=== PATIENT | female | born 2000 | race Asian ===

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

== ENCOUNTER 2021-07-15 13:53 | Outpatient (CLI) | payer BC, OTHER | END 2021-07-15 19:06 | disposition home or self-care (01) | LOC: RAD 13:53 | PROVIDERS: ATTEND Nurse Practitioner Family | DX: R06.02 Shortness of breath (principal) ==

== ENCOUNTER 2021-11-02 14:39 | Emergency (ER) | payer BC, OTHER ==
[~2021-11-02] VITALS: Ht 172.7 cm; Wt 104.8 kg
[2021-11-02 16:14] VITALS: BP 167/95; TEMP 98.5
== END 2021-11-02 16:14 | disposition home or self-care (01) ==
LOC: ED 14:39
DX: S00.11XA Contusion of right eyelid and periocular area, initial encounter (principal); V47.6XXA Car passenger injured in collision with fixed or stationary object in traffic accident, initial encounter; Y92.89 Other specified places as the place of occurrence of the external cause
CPT/HCPCS: 99283

== ENCOUNTER 2022-10-06 12:38 | Emergency (ER) | payer OTHER ==
[~2022-10-06] VITALS: Ht 172.7 cm; Wt 95.3 kg
[2022-10-06 12:52] VITALS: BP 156/84; TEMP 99.6
[2022-10-06 13:20] LABS: PLATELET COUNT 241 K/uL (152-353)
== END 2022-10-06 13:44 | disposition home or self-care (01) ==
LOC: ED 12:38
PROVIDERS: Family Medicine
DX: R30.0 Dysuria (principal); R39.15 Urgency of urination
CPT/HCPCS: 81002; 85027; 99283